=== PATIENT | male | born 1980 | race Caucasian/White ===

== ENCOUNTER 2018-04-27 03:46 | Emergency (ER) | payer SELFPAY ==
[~2018-04-27] VITALS: Ht 180.3 cm; Wt 68.0 kg
--- NOTE | 2018-04-27 04:20 | NUR ---
PATIENT WAS MSE BY DR VEGA IN ROOM 04A.
[2018-04-27 04:34] VITALS: BP 133/78
--- NOTE | 2018-04-27 04:36 | NUR ---
Patient discharged to home in stable conditon. Written and verbal after care instructions given. Patient verbalizes understanding of instructions.
== END 2018-04-27 04:39 | disposition home or self-care (01) ==
LOC: ER 03:52
DX: G56.31 Lesion of radial nerve, right upper limb (principal); F17.200 Nicotine dependence, unspecified, uncomplicated
CPT/HCPCS: A4663